=== PATIENT | female | born 1985 | race Caucasian/White ===

== ENCOUNTER → 2018-09-14 17:48 | Outpatient (CLI) | payer SELFPAY ==
[2018-09-14 15:26] VITALS: BMI 45.5
== END ==
PROVIDERS: PCP Nurse Practitioner Family; Referring Provider Nurse Practitioner Women's Health; Visit Provider Nurse Practitioner Women's Health
DX: N39.0 Urinary tract infection, site not specified (principal)
CPT/HCPCS: 87086; 87088

== ENCOUNTER → 2019-02-17 14:47 | Outpatient (CLI) | payer SELFPAY ==
[2019-01-23 10:36] VITALS: BMI 45.5
[2019-02-17 17:17] LABS: Progesterone Level 5.28 ng/mL (See Comment)
== END ==
PROVIDERS: Family Provider Nurse Practitioner Family; PCP Nurse Practitioner Family; Referring Provider Obstetrics & Gynecology; Visit Provider Obstetrics & Gynecology
DX: E28.2 Polycystic ovarian syndrome (principal)
CPT/HCPCS: 36415; 84144

== ENCOUNTER → 2019-03-28 14:58 | Outpatient (CLI) | payer SELFPAY ==
[2019-01-23 10:36] VITALS: BMI 45.5
[2019-03-28 17:04] LABS: hCG Titer Quant., Serum 1927 mIU/mL (1-3)
== END ==
PROVIDERS: Family Provider Nurse Practitioner Family; PCP Nurse Practitioner Family; Referring Provider Obstetrics & Gynecology; Visit Provider Obstetrics & Gynecology
DX: O20.0 Threatened abortion (principal); Z3A.00 Weeks of gestation of pregnancy not specified
CPT/HCPCS: 36415; 84702

== ENCOUNTER → 2019-04-17 17:15 | Outpatient (CLI) | payer SELFPAY ==
[2019-04-17 12:31] VITALS: BMI 45.5
[2019-04-17 21:52] LABS: Chlamydia Trachomatis by PCR Negative (Negative); Neisserai gonorrhoeae by PCR Negative (Negative); Probe Check PASS; Sample Adequacy Control PASS; Specimen Processing Control PASS
[2019-04-21 12:07] LABS: HPV APTIMA, High Risk Negative (Negative)
== END ==
PROVIDERS: Family Provider Nurse Practitioner Family; PCP Nurse Practitioner Family; Referring Provider Obstetrics & Gynecology; Visit Provider Obstetrics & Gynecology
DX: Z12.4 Encounter for screening for malignant neoplasm of cervix (principal); O09.90 Supervision of high risk pregnancy, unspecified, unspecified trimester; Z3A.00 Weeks of gestation of pregnancy not specified
CPT/HCPCS: 87086; 87088; 87491; 87591; 87624; 88175; G0145

== ENCOUNTER → 2019-04-24 11:08 | Outpatient (CLI) | payer OTHER, SELFPAY ==
[2019-04-17 12:31] VITALS: BMI 45.5
[2019-04-24 11:32] LABS: Absolute Lymphocyte Count 1.84 X10^3/uL (0.83-4.51); Absolute Neutrophil Count 6.6 X10^3/uL (2.0-7.7); Basophil# 0.03 X10^3/uL; Basophil% 0.3 % (0-1); Eosinophil# 0.16 X10^3/uL; Eosinophils% 1.7 % (0-5); Hematocrit 38.7 % (37-47); Hemoglobin 13.3 g/dL (12.0-15.0); Lymphocyte # 1.84 X10^3/ul (4.0); Lymphocyte % 19.8 % (19-41); Mean Corp Hgb Conc 34.4 g/dL (32-36); Mean Corpuscular Hgb 29.5 pg (27.0-32.0); Mean Corpuscular Volume 85.8 fL (81-99); Mean Platelet Vol. 10.1 fl (6.2-12.0); Monocyte# 0.68 X10^3/uL; Monocyte% 7.3 % (0-10); NRBC Flagged by Analyzer 0 % (0-5); Neutrophil # 6.55 X10^3/uL (2.7-7.7); Neutrophil % 70.5 % (47-70); Platelet Count 302 K/mm3 (150-450); RBC Distribution Width CV 14.6 % (11.6-14.6); RBC Distribution Width SD 45.4 fl (35.1-43.9); Red Blood Count 4.51 M/mm3 (4.2-5.4); White Blood Count 9.3 K/mm3 (4.4-11.0)
[2019-04-24 12:00] LABS: Glucose Challenge Gest 1H 50g 127 mg/dL (70-140)
[2019-04-24 12:50] LABS: HIV - WCH Non-Reactive (Nonreactive); Rubella IgG 47.1 IU/mL
[2019-04-28 01:38] LABS: Rapid Plasmin Reagin (RPR) NONREACTIVE (NONREACTIVE)
== END ==
PROVIDERS: Family Provider Nurse Practitioner Family; PCP Nurse Practitioner Family; Referring Provider Obstetrics & Gynecology; Visit Provider Obstetrics & Gynecology
DX: O09.90 Supervision of high risk pregnancy, unspecified, unspecified trimester (principal); Z3A.00 Weeks of gestation of pregnancy not specified
CPT/HCPCS: 36415; 82950; 85025; 86592; 86703; 86762; 86850; 86900; 86901

== ENCOUNTER → 2019-09-07 13:30 | Outpatient (CLI) | payer OTHER, SELFPAY ==
[2019-08-15 15:05] VITALS: BMI 45.5
[2019-09-07 13:49] LABS: Absolute Lymphocyte Count 1.86 X10^3/uL (0.83-4.51); Absolute Neutrophil Count 9.4 X10^3/uL (2.0-7.7); Basophil# 0.02 X10^3/uL; Basophil% 0.2 % (0-1); Eosinophil# 0.16 X10^3/uL; Eosinophils% 1.3 % (0-5); Hematocrit 31.8 % (37-47); Hemoglobin 10.5 g/dL (12.0-15.0); Lymphocyte # 1.86 X10^3/ul (4.0); Lymphocyte % 15.3 % (19-41); Mean Corpuscular Hgb 28.8 pg (27.0-32.0); Mean Corpuscular Volume 87.1 fL (81-99); Mean Platelet Vol. 10.6 fl (6.2-12.0); Monocyte# 0.61 X10^3/uL; NRBC Flagged by Analyzer 0 % (0-5); Neutrophil # 9.42 X10^3/uL (2.7-7.7); Neutrophil % 77.3 % (47-70); Platelet Count 259 K/mm3 (150-450); RBC Distribution Width CV 14.9 % (11.6-14.6); RBC Distribution Width SD 46.9 fl (35.1-43.9); Red Blood Count 3.65 M/mm3 (4.2-5.4); White Blood Count 12.2 K/mm3 (4.4-11.0)
[2019-09-07 14:07] LABS: Glucose Challenge Gest 1H 50g 153 mg/dL (70-140)
[2019-09-07 14:33] LABS: Hepatitis B Surface Antigen Non-Reactive (Nonreactive)
== END ==
PROVIDERS: Referring Provider Obstetrics & Gynecology; Visit Provider Obstetrics & Gynecology
DX: O09.90 Supervision of high risk pregnancy, unspecified, unspecified trimester (principal); Z3A.00 Weeks of gestation of pregnancy not specified
CPT/HCPCS: 36415; 82950; 85025; 87340

== ENCOUNTER → 2019-09-11 06:53 | Outpatient (CLI) | payer OTHER, SELFPAY ==
[2019-09-07 14:16] VITALS: BMI 45.5
[2019-09-11 07:56] LABS: Glucose GTT-Gestation. Fasting 107 mg/dL (<105)
[2019-09-11 08:41] LABS: Glucose GTT-Gestational 1 Hr 188 mg/dL (<190)
[2019-09-11 09:47] LABS: Glucose GTT-Gestational 2 Hr 149 mg/dL (<165)
[2019-09-11 10:50] LABS: Glucose GTT-Gestational 3 Hr 116 L (<145)
== END ==
PROVIDERS: Referring Provider Nurse Practitioner Women's Health; Visit Provider Nurse Practitioner Women's Health
DX: O99.810 Abnormal glucose complicating pregnancy (principal); Z3A.00 Weeks of gestation of pregnancy not specified
CPT/HCPCS: 36415; 82951; 82952; 86850; 86900; 86901

== ENCOUNTER → 2019-10-12 12:36 | Outpatient (CLI) | payer OTHER, SELFPAY ==
[2019-10-05 16:13] VITALS: BMI 46.5
[2019-10-05 16:28] VITALS: BMI 45.5
--- NOTE | 2019-10-12 12:37 | US_ITS ---
STUDY: SECOND AND THIRD TRIMESTER OBSTETRICAL ULTRASOUND REASON FOR EXAM: Female, 34 years old growth- GDM LMP: February 19, 2019. TECHNIQUE: Transabdominal TECHNICAL QUALITY: Adequate. PRIOR ULTRASOUND: None. FINDINGS: There is a single intrauterine fetus. The fetus is in a cephalic presentation. There is demonstrated cardiac activity with a heart rate of 148 bpm. There is a normal amniotic fluid volume. The largest amniotic fluid pocket measures 7.9 cm. The amniotic fluid index (ELIOT) is 19.6 cm. The placenta is anterior in location and is not low lying. There are Grade 1 placental changes. The cervix measures 5.0 cm in length. The adnexal regions are not visualized. BIOMETRY: BPD: 8.7 cm: 35 weeks, 0 days HC: 32.1 cm: 36 weeks, 1 days AC: 33.1 cm: 36 weeks, 6 days FL: 7.0 cm: 35 weeks, 6 days CI: 78% FL/BPD: 81% FL/HC: FL/AC: 21% HC/AC: 0.97 age by current US: 36 weeks, 0 days. LUKASZ by current US: November 09, 2019. Estimated weight: 2931 grams, +/- 434 grams, 98 %. Age by LMP: 33 weeks, 4 days. LUKASZ by LMP: November 26, 2019. US/OB Limited With Biometrics IMPRESSION: Single live intrauterine gestation with a mean gestational age of 36 weeks. Electronically Signed: Jori Cochran, at 10:07 EST , Service support ,
== END ==
PROVIDERS: Referring Provider Obstetrics & Gynecology; Visit Provider Obstetrics & Gynecology
DX: O24.419 Gestational diabetes mellitus in pregnancy, unspecified control (principal); O99.210 Obesity complicating pregnancy, unspecified trimester; Z3A.36 36 weeks gestation of pregnancy
CPT/HCPCS: 76816

== ENCOUNTER → 2019-11-02 | Outpatient (CLI) | payer OTHER, SELFPAY ==
[2019-11-02 16:28] VITALS: BMI 45.5
== END | disposition home or self-care (01) ==
LOC: LABSPEC 17:29
PROVIDERS: Visit Provider Obstetrics & Gynecology
DX: O09.90 Supervision of high risk pregnancy, unspecified, unspecified trimester (principal); Z3A.00 Weeks of gestation of pregnancy not specified
CPT/HCPCS: 87081

== ENCOUNTER 2019-11-17 07:12 | Inpatient (IN) | payer OTHER, SELFPAY ==
[2019-10-20 15:11] VITALS: BMI 45.5
[2019-11-08 15:22] VITALS: BMI 46.5
[2019-11-17] VITALS (28 sets, daily range): BP systolic 104–151; BP diastolic 45–90; PULSE 64–104; RESP 14–18; TEMP 36.2–36.8; O2SAT 94–99; BMI 46.7
[2019-11-17] MEDS: Lactated Ringers 1,000 ML 999 ML IV (05:50)
[2019-11-17 06:14] LABS: Absolute Lymphocyte Count 1.98 X10^3/uL (0.83-4.51); Absolute Neutrophil Count 9.7 X10^3/uL (2.0-7.7); Basophil# 0.04 X10^3/uL; Basophil% 0.3 % (0-1); Eosinophil# 0.09 X10^3/uL; Eosinophils% 0.7 % (0-5); Hematocrit 32.8 % (37-47); Hemoglobin 10.4 g/dL (12.0-15.0); Lymphocyte # 1.98 X10^3/ul (4.0); Lymphocyte % 15.4 % (19-41); Mean Corp Hgb Conc 31.7 g/dL (32-36); Mean Corpuscular Hgb 26.3 pg (27.0-32.0); Mean Platelet Vol. 11.7 fl (6.2-12.0); Monocyte# 0.97 X10^3/uL; Monocyte% 7.5 % (0-10); NRBC Flagged by Analyzer 0 % (0-5); Neutrophil % 75.5 % (47-70); Platelet Count 235 K/mm3 (150-450); RBC Distribution Width CV 15.9 % (11.6-14.6); RBC Distribution Width SD 47.9 fl (35.1-43.9); Red Blood Count 3.95 M/mm3 (4.2-5.4); White Blood Count 12.9 K/mm3 (4.4-11.0)
[2019-11-17 06:21] LABS: Bedside Glucose 101 mg/dL (70-110)
[2019-11-17] MEDS: Lactated Ringers 1,000 ML 200 ML IV (06:57)
[2019-11-17] MEDS: Sodium Citrate/Citric Acid 30 ML UDC PO (08:30)
[2019-11-17] MEDS: Oxytocin 30 units/NS 500 ml 30 UNITS/500 ML IV.SOLN 167 UNITS IV (10:05)
--- NOTE | 2019-11-17 10:07 | HP.PCM_ITS ---
- Problem List (1) Active labor at term Status: Acute (2) Gestational diabetes Status: Acute Qualifiers: Gestational diabetes mellitus control: diet-controlled Trimester: third trimester Qualified Code(s): O24.410 - Gestational diabetes mellitus in , diet controlled Comment: low carb diet, diet controlled. after 32 weeks, weekly nsts, growth scan at 36 (3) Anemia affecting Status: Acute Qualifiers: Trimester: second trimester Qualified Code(s): O99.012 - Anemia complicating , second trimester Comment: add fe (4) H/O section Status: Acute Comment: 2013 plans RLTCS (5) Obesity affecting Status: Acute Qualifiers: Trimester: first trimester Qualified Code(s): O99.211 - Obesity complicating , first trimester Comment: nl GCT (6) Supervision of high risk , antepartum Status: Acute Comment: PRR LUKASZ 11/26/2019 girl Jacki Wolf Spouse Karan (7) Status: Acute Qualifiers: Weeks of gestation: 37 weeks Qualified Code(s): Z3A.37 - 37 weeks gestation of Comment: Declines carrier, genetic and NTD. Anatomy US nl. [facility] would like periodic status reports (8) Anxiety Status: Chronic Comment: 150 mg zoloft, recommend counseling (9) PCOS (polycystic ovarian syndrome) Status: Chronic Comment: femara History Date of Admission: 11/17/19 Final LUKASZ: 11/26/19 Gestational age: 38 Weeks and 5 Days History of this : This is a 34 year-old, , at 38 weeks gestational age presents in active labor with regular contractions and declining trial of labor after . P atient has had a complicated by gestational diabetes that has been well controlled with diet.. Medical History: Medical History (Last Reviewed 11/08/19 @ 15:22 by Mary Lou Aguilera) Anxiety F41.9 Obesity E66.9 PCOS (polycystic ovarian syndrome) E28.2 Surgical History: Surgical History (Last Reviewed 11/08/19 @ 15:22 by Mary Lou Aguilera) delivery delivered O82 History of dilation and curettage Z98.890 miscarriage 2010; pt states that a polyp was removed as well as a cyst. Allergies prednisone Allergy (Mild, Verified 11/17/19 05:48) Other rash Home Medications: Home Medications levocetirizine 5 mg tablet 5 mg PO DAILY 01/23/19 fluticasone propionate 50 mcg/actuation nasal spray,suspension 1 spray INTRANASAL DAILY PRN 04/17/19 blood sugar diagnostic See Rx Instructions .ROUTE .MEDSUPPLY #100 ea 09/11/19 blood-glucose meter See Rx Instructions .ROUTE .MEDSUPPLY #1 ea 09/11/19 sertraline 100 mg tablet 150 mg PO QDAY 90 Days #135 tab 10/24/19 Vits [Prenatabs FA] 1 tab PO DAILY 11/17/19 Smoking Status: Never smoker Alcohol: None Number of Fetus(es): 1 NST - FHR Rate Baby A Baseline: 130 Variability:: Moderate Decelerations:: None NST Reactive:: Yes FHR Category:: Category I Uterine Activity:: Regular every 2-3 and painful History Past Pregnancies: Past Pregnancies History of miscarriage Previous term for macrosomia 10 pounds 3 ounces Labs: Mom's Labs & Results 11/17/19 11/17/19 11/17/19 05:50 05:50 06:16 WBC 12.9 H RBC 3.95 L Hgb 10.4 L Hct 32.8 L MCV 83.0 MCH 26.3 L MCHC 31.7 L RDW Std Deviation 47.9 H RDW Coeff of Tyshawn 15.9 H Plt Count 235 MPV 11.7 Immature Gran % (Auto) 0.600 Neut % (Auto) 75.5 H Lymph % (Auto) 15.4 L Hemphill % (Auto) 7.5 Eos % (Auto) 0.7 Baso % (Auto) 0.3 Absolute Neuts (auto) 9.7 H Absolute Lymphs (auto) 1.98 Nucleated RBC % 0 POC Glucose 101 Blood Type A POSITIVE Antibody Screen NEGATIVE 11/17/19 10:40 WBC RBC Hgb Hct MCV MCH MCHC RDW Std Deviation RDW Coeff of Tyshawn Plt Count MPV Immature Gran % (Auto) Neut % (Auto) Lymph % (Auto) Hemphill % (Auto) Eos % (Auto) Baso % (Auto) Absolute Neuts (auto) Absolute Lymphs (auto) Nucleated RBC % POC Glucose 97 Blood Type Antibody Screen Course Did the patient receive Yes care? Labs Blood Type: A RH: POSITIVE RPR/VDRL/Syphilis Nonreactive Rubella status Immune HbSAg Negative Date Done: 09/07/18 Chlamydia Negative Gonorrhea Negative HIV/AIDS Non-Reactive Group B Strep: Negative Current Obstetrical History Gestational Diabetes Yes: diet controlled Incompetent Cervix No Infertility No IUGR No Macrosomia No Hypertension/Pre-eclampsia No Placenta Previa/Abruption No PTL/PROM No Uterine anomaly No Oligohydramnios No Polyhydramnios No Multiple gestation No Past Medical History Asthma No Diabetes No Hypertension No Heart disease No Mitral valve prolapse No Neurologic/Seizure disorder/ No Migraines Kidney disease No Liver disease No Varicosities No Clotting disorders/Hx of DVT No Thyroid Dysfunction No Other medical diseases No Psychiatric disorders Yes: anxiety Major trauma No Abnormal PAP smear Yes: polyps removed on cervix Sleep apnea No Mammogram in the last 2 years No Enter DETAILS of medical polycystic ovarian syndrome history Social History Marital Status: Alleged father Karan Jurado Hx Smoking No Smoking Status Never smoker Expected Infant Delivery Method: Scheduled Section Review of Systems Constitutional: Denies: Fever, Malaise Eyes: Denies: Blurred vision, Vision Change HEENT: Denies: Head Aches, Visual Changes Cardiovascular: Denies: Chest Pain, Palpitations Respiratory: Denies: Cough, Shortness of Breath, Wheezing Gastrointestinal: Denies: Abdominal Pain, Diarrhea, Nausea, Vomiting Genitourinary: Denies: Dysuria, Hematuria Musculoskeletal: Denies: Joint Pain, Muscle pain Skin: Denies: Lesions, Rash Neurological: Denies: Blurred vision, Focal weakness, Headaches Psychiatric: Denies: Anxiety, Depression Endocrine: Denies: Heat/ Cold Intolerance Hematologic/ Lymphatic: Denies: Easy Bruising, Easy Bleeding Physical Exam Vitals: Vital Signs Pulse BP Pulse Ox 97 148/78 H 94 11/17/19 07:23 11/17/19 07:23 11/17/19 05:57 General: Alert, Cooperative, No apparent distress HEENT: Atraumatic, Normocephalic. Negative for: Thyromegaly, Lymphadenopathy Cardiovascular: Regular rate Lungs: Normal air movement Abdomen: Soft, Non Tender, Gravid Neurological: Deep Tendon Reflexes 2+/4 and Symmetrical, Neuro grossly intact. 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 Negative for: Vulvar lesions Estimated gestational size: Appropriate for gestational size Presentation: Cephalic Assessment/Plan All Active Problems (Last Reviewed 11/08/19 @ 15:22 by Mary Lou Aguilera) Active labor at term (Acute) Gestational diabetes (Acute) Anemia affecting (Acute) H/O section (Acute) Obesity affecting (Acute) Supervision of high risk , antepartum (Acute) (Acute) Abnormal glucose affecting (Resolved) Low lying placenta nos or without hemorrhage, second trimester (Resolved) This is a 34 year-old, G 3P1 at 38 weeks gestational age presents in active labor with regular contractions previous declined trial of labor after . plan RLTCS
[2019-11-17 11:06] LABS: Bedside Glucose 97 mg/dL (70-110)
[2019-11-17] MEDS: Lactated Ringers 1,000 ML 100 ML IV (13:10)
[2019-11-17] MEDS: Ketorolac 30 MG/ML Syringe IV ×2 (16:45→22:03)
--- NOTE | 2019-11-17 17:09 | OP.PCM_ITS ---
Problem List (1) Active labor at term Status: Acute (2) Gestational diabetes Status: Acute Qualifiers: Gestational diabetes mellitus control: diet-controlled Trimester: third trimester Qualified Code(s): O24.410 - Gestational diabetes mellitus in , diet controlled Comment: low carb diet, diet controlled. after 32 weeks, weekly nsts, growth scan at 36 (3) Anemia affecting Status: Acute Qualifiers: Trimester: second trimester Qualified Code(s): O99.012 - Anemia complicating , second trimester Comment: add fe (4) H/O section Status: Acute Comment: 2013 plans RLTCS (5) Obesity affecting Status: Acute Qualifiers: Trimester: first trimester Qualified Code(s): O99.211 - Obesity complicating , first trimester Comment: nl GCT (6) Supervision of high risk , antepartum Status: Acute Comment: PRR LUKASZ 11/26/2019 girl Jacki Wolf Spouse Karan (7) Status: Acute Qualifiers: Weeks of gestation: 37 weeks Qualified Code(s): Z3A.37 - 37 weeks gestation of Comment: Declines carrier, genetic and NTD. Anatomy US nl. [facility] would like periodic status reports (8) Anxiety Status: Chronic Comment: 150 mg zoloft, recommend counseling (9) PCOS (polycystic ovarian syndrome) Status: Chronic Comment: femara Delivery Classification: REDDY Final LUKASZ: 11/26/19 Gestational age: 38 Weeks and 5 Days equipment operator intermodal yard: Araseli Sesay Type of Anesthesia:: Spinal Special Medications: violetta Implants Used: none Date of Procedure: 11/17/19 Pre-Operative Diagnosis: ial previous Post-Operative Diagnosis: same Indications for : Repeat Elective Description of Procedure: 34-year-old G3, P1 at 38 weeks 5 days presents in active labor made cervical change from when she was in the office and was avani regularly with painful contractions for decision was made to proceed with repeat low transverse . Spinal anesthesia was placed without difficulty. Lozada catheter was placed. The patient was placed in the dorsal supine position with leftward tilt. Patient was prepped and draped in the normal sterile fashion. Pfannenstiel skin incision was made with the scalpel and carried through to the underlying layer of fascia with the scalpel. Fascia was nicked in the midline and the incision extended laterally. The rectus bellies were dissected off superiorly and inferiorly with out complication both sharply and bluntly. The peritoneum was entered digitally. The incision was stretched and a low transverse uterine incision was made with the scalpel. The infant's head was delivered atraumatically followed by the anterior and posterior shoulders without complication the rest of the infant delivered. The cord was clamped and cut and the was handed off to awaiting nurse. The placenta was delivered spontaneously immediately following and was noted to be intact and have a three- vessel cord. The uterus was exteriorized cleared of all clots and debris, and the incision was closed in a double layer closure using #1 Monocryl. The ovaries and fallopian tubes were noted to be within normal limits. The uterus was returned to the maternal abdomen and gutters were cleared of all clots and debris. Violetta was applied to the incision to obtain excellent hemostasis. The peritoneum was closed with 3-0 Monocryl in a running fashion. Gloves were changed prior to fascial closure. Fascia was closed with 0 PDS in a running fashion. Subcutaneous tissue was copiously irrigated and the skin was closed with 3-0 Monocryl in a subcuticular fashion. Mepilex dressing was applied without complication. Patient was taken to recovery in stable condition. It was discussed with the patient that based on the clinical information obtained during this encounter, combined with her history, at this time I would recommend cesareans for future deliveries if further pregnancies are desired. Amniotic Membrane Rupture Type: Artificial Amniotic Fluid Description: Clear Placenta Disposition: [facility] Drain: Lozada to straight drain Cord Entanglement: None Esitmated Blood Loss (ml): 900 Infant Gender: Female Antibiotic Given: Ancef 3 grams IV x1 Pt instructed on risks of surgery: Bleeding, Anesthesia Risks, Infection, Injury to surrounding structure(s) including bowel and bladder Complications: None - Admit VTE Documentation VTE Present on Admission: No Multi Select Codes - Urinary/Genital Urinary/Genital CPT Codes: 39615 Delivery [facility]
[2019-11-17] MEDS: Sertraline 100 MG Tablet 150 MG PO (17:35)
[2019-11-17] MEDS: Enoxaparin 40 MG/0.4 ML Syringe SC (20:24)
--- NOTE | 2019-11-17 20:51 | DCINST_ITS ---
Discharge Diet: No Restrictions Discharge Activity: May Not Drive - for 2 weeks, May not drive while taking narcotic pain medications., May Shower, May Take a Tub Bath - in 7 days May resume sexual activity in: 4-6 weeks Lifting Restrictions: 20 pounds Additional Activity Instructions:: Nothing in the vagina for 4-6 weeks. You may return to work/school in 6 weeks. Call your doctor if your incision/area has: Continuous Slow Oozing, Sudden Increased Bleeding, Increased Pain/ Swelling, Increased Redness, Foul Smelling Discharge Call your doctor if you observe: Fever of 101 or Higher, Using more than one pad per hour - for 2 hours Suture Line Care: Avoid Pulling/Pushing, Avoid Pinching/Bending Cleanse incision/area with: Keep Dressing Clean & Dry Additional Instructions: If you experience any of the following, contact your healthcare provider. * Bleeding that soaks a pad every hour for 2 hours * Fever 100.4 or higher * Unrelieved incision or abdominal pain * Swelling, redness, discharge or bleeding from your incision or episiotomy site * Your incision begins to separate * Problems urinating (including inability to urinate or burning while urinating). * Visual changes * Severe headache * Flu-like symptoms * Pain or redness in one of both of your breasts * Pain, warmth, tenderness or swelling in your legs, especially the calf area * Frequent nausea and vomiting * Symptoms of depression or anxiety If you experience any of the following, call 911 or go to the nearest Emergency Room. * Chest pain * Problems breathing * Seizure activity * Partial or complete paralysis of a body part, slurred speech, weakness or drooping of the face, or a sudden inability to walk or hold your balance Allergies/Adverse Reactions: Allergies prednisone Allergy (Mild, Verified 11/17/19 05:48) Other rash Medications to take at Discharge levocetirizine 5 mg tablet 5 mg PO DAILY 01/23/19 fluticasone propionate 50 mcg/actuation nasal spray,suspension 1 spray INTRANASAL DAILY PRN 04/17/19 blood sugar diagnostic See Rx Instructions .ROUTE .MEDSUPPLY #100 ea 09/11/19 blood-glucose meter See Rx Instructions .ROUTE .MEDSUPPLY #1 ea 09/11/19 sertraline 100 mg tablet 150 mg PO QDAY 90 Days #135 tab 02/18/20 Naproxen [Naprosyn] 250 - 500 mg PO Q8H PRN PRN #30 tab 11/17/19 Oxycodone HCl/Acetaminophen [Percocet 5-325] 1 - 2 tablet PO Q6H PRN PRN 7 Days #15 tablet 11/17/19 Vits [Prenatabs FA] 1 tab PO DAILY 11/17/19 The following prescriptions were given: Naproxen [Naprosyn] 250 - 500 mg PO Q8H PRN PRN #30 tab PRN Reason: MILD PAIN Transmission Status: Pending to [facility] Oxycodone HCl/Acetaminophen [Percocet 5-325] 1 - 2 tablet PO Q6H PRN PRN 7 Days #15 tablet PRN Reason: Pain Transmission Status: Sent to [facility] Follow-Up: Call to make an appointment with your doctor for an incision check in 1-2 weeks. You will also need a 6 week post- follow up appointment. Test results from this visit will be discussed in further detail at your follow- up appointment, if applicable. Please Follow Up With: Keila Viveros MD - Call to make an appointment for an incision check in 1-2 [phone] When: You will need a post- check in 6 weeks. Primary Care Physician: Care Physician,No Primary [Primary Care Provider] -
[2019-11-17] MEDS: 0.9% Saline Lock 10 ML Syringe IV (22:03)
[2019-11-18] VITALS (7 sets, daily range): BP systolic 111–123; BP diastolic 62–70; PULSE 74–102; RESP 14–18; TEMP 36.2–36.8; O2SAT 97–99
[2019-11-18] MEDS: Ketorolac 30 MG/ML Syringe IV ×3 (04:48→16:15)
[2019-11-18] MEDS: 0.9% Saline Lock 10 ML Syringe IV ×3 (04:49→16:16)
[2019-11-18 05:06] LABS: Bedside Glucose 116 mg/dL (70-110)
[2019-11-18 05:08] LABS: Hematocrit 27.9 % (37-47); Hemoglobin 8.8 g/dL (12.0-15.0); Mean Corp Hgb Conc 31.5 g/dL (32-36); Mean Corpuscular Hgb 26.5 pg (27.0-32.0); Mean Platelet Vol. 10.8 fl (6.2-12.0); Platelet Count 199 K/mm3 (150-450); RBC Distribution Width CV 16.1 % (11.6-14.6); RBC Distribution Width SD 48.4 fl (35.1-43.9); Red Blood Count 3.32 M/mm3 (4.2-5.4); White Blood Count 13.2 K/mm3 (4.4-11.0)
--- NOTE | 2019-11-18 07:11 | PCM.PN.OB ---
Patient Problems: Active and Suspected Problems (Last Reviewed 11/08/19 @ 15:22 by Mary Lou Aguilera) Active labor at term (Acute) Subjective: doing well no complaints pain controlled no CP SOB N V ambulating well tolerating po lochia moderate, going well - Physical Exam Vitals/I&O's: Vital Signs Temp Pulse Resp BP Pulse Ox 98.0 F 84 18 118/70 97 11/18/19 04:45 11/18/19 06:30 11/18/19 06:30 11/18/19 04:45 11/18/19 06:30 Oxygen Delivery Method Room Air Weight: 289 lb 14.526 oz Body Mass Index (BMI) 46.7 Intake and Output for Last 24 Hours 11/16/19 11/17/19 11/18/19 23:59 23:59 23:59 Intake Total 2666.67 / 2666.67 Output Total 950 / 950 150 / 150 Balance 1716.67 / 1716.67 -150 / -150 Laboratory Results 11/17/19 05:50: Blood Type A POSITIVE, Antibody Screen NEGATIVE 11/17/19 10:40: POC Glucose 97 11/18/19 04:55: POC Glucose 116 H 11/18/19 04:58: WBC 13.2 H, RBC 3.32 L, Hgb 8.8 L, Hct 27.9 L, MCV 84.0, MCH 26.5 L, MCHC 31.5 L, RDW Std Deviation 48.4 H, RDW Coeff of Tyshawn 16.1 H, Plt Count 199, MPV 10.8 Current Medications Acetaminophen (Tylenol) 1,000 mg PO Q8H PRN PRN Reason: Pain Score 1-3/10 Bisacodyl (Dulcolax) 10 mg RECTAL UD PRN PRN Reason: If no BM Diphenhydramine HCl (Benadryl) 25 mg PO Q6H PRN PRN PRN Reason: ITCHING Stop: 11/18/19 10:45 Enoxaparin Sodium (Lovenox) 40 mg SC BID@0800,2000 MARYANN Last Admin: 11/17/19 20:24 Dose: 40 mg Documented by: Glucagon () 1 mg IM .X1 PRN PRN Reason: Hypoglycemia Hydrocortisone (Hytone) 1 applic TOPICAL TID PRN PRN; Protocol PRN Reason: Discomfort Naloxone HCl 4 mg/ Dextrose 504 mls @ 0 mls/hr IV .Q0M PRN; Protocol PRN Reason: Respiratory depression Dextrose (Dextrose 10%-Water) 250 mls @ 999 mls/hr IV X1 PRN; Protocol PRN Reason: HYPOGLYCEMIA Ketorolac Tromethamine (Toradol (Bkc)) 30 mg IV Q6H MARYANN Stop: 11/19/19 10:01 Last Admin: 11/18/19 04:48 Dose: 30 mg Documented by: Loratadine (Claritin) 10 mg PO DAILY [facility] Methylergonovine Maleate (Methergine) 0.2 mg IM X1 PRN PRN Reason: Uterine Atony Nalbuphine HCl (Nubain) 5 mg IV Q3H PRN PRN PRN Reason: ITCHING Stop: 11/18/19 10:45 Naloxone HCl (Narcan) 0.02 mg IV Q1M PRN PRN Reason: RR <10 and pt unresponsive Naproxen (Naprosyn) 250 - 500 mg PO Q8H PRN PRN PRN Reason: Pain Score 1-3/10 Ondansetron HCl (Zofran) 4 mg IV Q4H PRN PRN PRN Reason: Nausea Oxycodone HCl (Oxyir) 5 - 10 mg PO Q4H PRN PRN PRN Reason: Pain Score 4-10/10 Multivit/Folic Acid/Iron (Prenatabs Fa) 1 tablet PO DAILY@1200 MARYANN Prochlorperazine Edisylate (Compazine Iv) 10 mg IV Q6H PRN PRN PRN Reason: NAUSEA Senna/Docusate Sodium (Senokot-S, Elise-Colace) 0 tablet PO DAILY PRN PRN Reason: Constipation Sertraline HCl (Zoloft) 150 mg PO DAILY [facility] Last Admin: 11/17/19 17:35 Dose: 150 mg Documented by: Simethicone (Mylicon) 80 mg PO PCHS PRN PRN Reason: Indigestion/stomach pain Sodium Chloride () 5 - 15 ml IV UD PRN PRN Reason: SALINE FLUSH Last Admin: 11/18/19 04:49 Dose: 10 ml Documented by: Medical Necessity - Tobacco Use Smoking Status: Never smoker Assessment/Plan All Active Problems (Last Reviewed 11/08/19 @ 15:22 by Mary Lou Aguilera) Active labor at term (Acute) Gestational diabetes (Acute) Anemia affecting (Acute) H/O section (Acute) Obesity affecting (Acute) Supervision of high risk , antepartum (Acute) (Acute) Abnormal glucose affecting (Resolved) Low lying placenta nos or without hemorrhage, second trimester (Resolved) s/p LTCS PPD # 1 1. routine post care 2. breast feeding- support given 3. rh positive 4. rubella immune
[2019-11-18] MEDS: Sertraline 100 MG Tablet 150 MG PO (10:13)
[2019-11-18] MEDS: Loratadine 10 MG Tablet PO (10:13)
[2019-11-18] MEDS: Enoxaparin 40 MG/0.4 ML Syringe SC (10:13)
[2019-11-18] MEDS: Prenatal Vits Tablet 1 TABLET PO (10:14)
--- NOTE | 2019-11-18 13:00 | CASEMGMT ---
Social Work Assessment Labor and Delivery Unit Date of Referral: 11/18/2019 Time of Referral: 032 Referred By: Dr. Viveros Date of Intervention: 11/18/2019 Time of Intervention: 1300 Reason for Referral: History of Anxiety, manages with Zoloft History obtained from: Mother of baby (MOB), Father of baby (FOB), Nursing staff, and chart. Household composition: FOB, MOB, Roman (age 6) and now this , Jacki Jurado. Alleged FOB is Karan Jurado. MOB and FOB have been for 11 years and together for 12 years. Roman shared paternity with Jacki. MOB stating that was planned and long time coming. MOB stating to have had a miscarriage with first , was able to get and have Roman and thought to be unable to have any other children until Jacki. Medical History: MOB with planned for 11/20/2019 but came in early due to having contractions. MOB delivered via at 38 weeks to this , Jacki. Jacki with apgars of 8 (1 min) and 9 (5 min). Infant weight: 4.455kg. No complications per MOB. MOB and FOB hoping to be able to return to home today, nursing staff updated on this. MOB with a history of Anxiety, Gestational diabetes, polycystic ovarian syndrome. Educational Status: MOB reporting to have completed high school and to have no concerns with reading/writing or comprehension. 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 FOB very complimentary of MOB during assessment when FOB was present in room. Infant Supplies: MOB/FOB stating to have all needed supplies within the home (ex: Crib, Care seat, clothing). MOB plans to do a combination of and bottle feeding. Childcare/Caregiver(s): MOB plans to be primary rn complex care for infant. MOB reporting that FOB plans to have the next week off work to help around the home and then after FOB returns to work the plan will be for MOB's mother to stay with MOB to assist with the transition. Transportation: No concerns. Programs/Agencies Involved: No active involvement in community programs/agencies. Children Services/Legal Issues: No history per MOB/FOB. Mental Health History: MOB reporting a history of anxiety and to manage this with Zoloft. MOB stating that the Zoloft helps. MOB reporting to have been anxious coming into the hospital due to the recent community health concerns. MOB stating to now feel much better since having infant and planning to return to home. MOB stating to be able to manage anxiety through speaking with spouse as well. Substance Use History: MOB denies any history of substance abuse/use for MOB or FOB. Maternal and Drug Screens: No drug screens completed. PHQ9: MOB did not trigger PHQ-9. MOB presenting with a positive and engaged affect. Was able to broach the topic of depression and MOB risk for this. MOB denies any history of depression. MOB educated and aware of signs/symptoms of depression. This social work assistant as also able to normalize MOB's feelings of anxiety. Was able to have a conversation about seeking outside help/support for anxiety if needed. Family/Social Stressors: MOB denies any recent stressors outside of now transitioning to two children versus one. MOB stating to have the needed support to assist with this transition. Support Systems: FOB and family members. Depression and Anxiety/Shaken Baby/Safe Sleeping: MOB educated and provided resources on depression, anxiety, shaken baby, safe sleeping, community resources, local counseling agencies. ASSESSMENT: Met with MOB and FOB with infant in room initially. This social work assistant did ask FOB to step out of room to assess MOB's safety in the home. FOB left willingly. MOB stating to feel safe with FOB and to have no concerns with returning to home. MOB stating to have a connection with and to be happy that is now here. MOB stating to be disappointment with visitation limitations at this point and that is why Roman has not been able to come, but MOB stating to be excited for Roman to meet when returning to home. Orman is currently with MOB's mother. MOB smiling often towards this social work assistant and engaged in assessment questions. Infant resting on bed with MOB during assessment. MOB gazing often towards during assessment. Active listening and support provided. PLAN: to discharge to home with MOB, FOB and older brother Roman. Nursing staff updated on above social work assessment. No other services requested or indicated. Jayna Metcalf CUSTOMER SERVICE COORDINATOR, CATERING MANAGER
== END 2019-11-18 17:15 | disposition home or self-care (01) | DRG 788 ==
LOC: WPOUT 07:13 → WP 07:13
PROVIDERS: Admitting Provider Obstetrics & Gynecology; Referring Provider Obstetrics & Gynecology; Visit Provider Obstetrics & Gynecology
DX: O34.211 Maternal care for low transverse scar from previous cesarean delivery (principal); O24.420 Gestational diabetes mellitus in childbirth, diet controlled; O99.214 Obesity complicating childbirth; E66.9 Obesity, unspecified; O99.02 Anemia complicating childbirth; D64.9 Anemia, unspecified; O99.344 Other mental disorders complicating childbirth; F41.9 Anxiety disorder, unspecified; O99.284 Endocrine, nutritional and metabolic diseases complicating childbirth; E28.2 Polycystic ovarian syndrome; Z3A.38 38 weeks gestation of pregnancy; Z37.0 Single live birth
CPT/HCPCS: 59050; 82962; 85025; 85027; 86850; 86900; 86901; 99218; 99251; J7120; A4216; G0378; G0463; J2405

== ENCOUNTER → 2019-12-01 14:47 | Outpatient (CLI) | payer OTHER, SELFPAY ==
[2019-11-17 05:46] VITALS: BMI 46.7
[2019-12-01 15:39] LABS: Absolute Lymphocyte Count 2.16 X10^3/uL (0.83-4.51); Absolute Neutrophil Count 4.6 X10^3/uL (2.0-7.7); Basophil# 0.05 X10^3/uL; Basophil% 0.7 % (0-1); Eosinophil# 0.22 X10^3/uL; Eosinophils% 2.9 % (0-5); Hematocrit 37.7 % (37-47); Hemoglobin 11.3 g/dL (12.0-15.0); Lymphocyte # 2.16 X10^3/ul (4.0); Lymphocyte % 28.2 % (19-41); Mean Corpuscular Hgb 25.3 pg (27.0-32.0); Mean Corpuscular Volume 84.3 fL (81-99); Mean Platelet Vol. 10.9 fl (6.2-12.0); Monocyte# 0.58 X10^3/uL; Monocyte% 7.6 % (0-10); NRBC Flagged by Analyzer 0 % (0-5); Neutrophil # 4.64 X10^3/uL (2.7-7.7); Neutrophil % 60.3 % (47-70); Platelet Count 365 K/mm3 (150-450); RBC Distribution Width CV 17.2 % (11.6-14.6); RBC Distribution Width SD 52.8 fl (35.1-43.9); Red Blood Count 4.47 M/mm3 (4.2-5.4); White Blood Count 7.7 K/mm3 (4.4-11.0)
== END ==
PROVIDERS: Referring Provider Obstetrics & Gynecology; Visit Provider Obstetrics & Gynecology
DX: O99.019 Anemia complicating pregnancy, unspecified trimester (principal); Z3A.00 Weeks of gestation of pregnancy not specified
CPT/HCPCS: 36415; 85025

== ENCOUNTER 2020-12-16 11:01 | Observation (INO) | payer SELFPAY ==
[2020-01-02 16:28] VITALS: BMI 46.7
[2020-12-16 11:03] VITALS: BP 135/88; PULSE 86; RESP 16; TEMP 35.7; O2SAT 98; BMI 44.4
--- NOTE | 2020-12-16 12:02 | US_ITS ---
STUDY: ABDOMINAL ULTRASOUND - RIGHT UPPER QUADRANT REASON FOR VISIT: Female, 35 years old epigastric pain. TECHNIQUE: Ultrasound evaluation of the right upper quadrant was performed with real-time and static cifuentes-scale imaging. TECHNICAL QUALITY: Adequate. COMPARISON: None. FINDINGS: Liver: The liver measures 16.8 cm. There is normal echogenicity of the liver. The bile ducts are within normal limits. There is hepatic color flow. The direction of portal flow is hepatopetal. There is no demonstrated mass lesion. Gallbladder: Normal distended gallbladder. The gallbladder wall is slightly thickened and measures 3.3 mm. There is a positive sonographic Wheatley''s sign. There is trace amount of pericholecystic fluid. There are multiple echogenic structures within the gallbladder, consistent with multiple gallstones. Sludge is also seen in the gallbladder lumen. Common Bile Duct (C.B.D.): The common bile duct measures 3.8 mm. Pancreas: Normal size of the head, body and tail of the pancreas. There is increased echogenicity of the pancreas. There is no demonstrated pancreatic mass or cyst. Right Kidney: Normal size of the right kidney. The right kidney measures 11.3 cm x 5.6 cm x 4.6 cm. Normal renal cortex. The right cortex measures 1.5 cm. There is no demonstrated renal mass or cyst. There is no right hydronephrosis. US/Gallbladder IMPRESSION: Multiple gallstones and sludge seen within the gallbladder lumen. Mildly thickened gallbladder wall with an minimal amount of pericholecystic fluid. Electronically Signed: Jori Cochran MD at 14:03 EDT , Service support ,
--- NOTE | 2020-12-16 12:03 | ED.VIS.GI ---
History of Present Illness Chief Complaint: Abd Pain Informant: Patient - Abdominal Pain/Flank Pain Onset: Days - 3 Context: Gradual Onset - shortly after dinner Timing: Continuous, Waxes and wanes Quality: Aching Location: - - across upper abd, occasionally into upper flanks, not back/shoulders Current Severity: Moderate Maximum Severity: Severe Worsened by: Nothing. Not Worsened By: Food - but not eating much since onset Relieved by: Nothing - Nausea/Vomiting/Emesis GI Symptom: Nausea. Negative for: Vomiting - Diarrhea/Melena/Hematochezia GI Symptom: Diarrhea. Negative for: Melena, Hematochezia Onset: Today Stool Quality: Loose. Negative for: Mucous, Black, Maroon, TEODORA per rectum Episodes: 1 Associated Symptoms: Negative for: Dysuria, Frequency, Hematuria, Urgency Narrative: Healthy 35-year-old female has had upper abdominal pain in a bandlike sensation for the last several days. It has been somewhat colicky, it has not gone away. Prior similar symptoms: No Recent Illness/Hospitalization: Yes - Stomach bug along with , 8 hours of vomiting/diarrhea 1 week ago - Past Medical History (1) Anxiety Status: Chronic Comment: 150 mg zoloft, recommend counseling (2) PCOS (polycystic ovarian syndrome) Status: Chronic Comment: femara Past Medical History - Allergies and Home Meds Allergies/Adverse Reactions: Allergies prednisone Allergy (Mild, Verified 12/16/20 11:02) Other rash Primary Care Physician: Care Physician,No Primary [NON-STAFF] - Surgical History: - - x2 Lives: Spouse/ Significant Other Smoking Status: Never smoker Review of Systems General: Reports: Malaise. Denies: Chills, Fever, Sweats Eyes: Denies: Visual changes - bilaterally, Diplopia ENT: Denies: Rhinorrhea, Sore throat Cardiovascular: Denies: Chest pain, Palpitations Respiratory: Denies: Dyspnea, Cough, Dyspnea on exertion Gastrointestinal: Reports: Abdominal pain, Nausea, Vomiting, Diarrhea. Denies: Melena, Hematochezia Genitourinary: Denies: Dysuria, Hematuria, Frequency Musculoskeletal: Denies: Myalgias, Back pain, Swelling, Extremity Pain Skin: Denies: Rash, Wounds Neurological: Denies: Headache, Weakness, Numbness Physical Exam Vital Signs/Narrative: Vital Signs Temp Pulse Resp BP Pulse Ox 12/16/20 11:03 96.2 F L 86 16 135/88 H 98 Inital Vital Signs reviewed: Yes General: Well nourished, Well developed, Obese, No Acute Distress Head: Normocephalic, Atraumatic Eyes: Perrl, EOMI ENT: Moist mucous membranes, No rhinorrhea Neck: Supple, Nontender Cardiovascular: Regular rate, Regular rhythm, No murmurs Respiratory: No distress, CTA bilaterally, Chest nontender Abdomen: Soft, Nondistended, Normal bowel sounds, No masses, Tender - Across upper abdomen, including right upper quadrant, Wheatley's sign. Negative for: Guarding, Rebound tenderness Back: Nontender, Normal Inspection. Negative for: CVA tenderness Extremities: Nontender, No edema. Negative for: Calf Tenderness Skin: Normal color, No rash, No Trauma Neurological: Alert, Oriented x3, Cranial nerves II-XII grossly intact, Normal Strength, Normal Sensation, Normal Gait Psychological: Normal affect, Normal Mood Diagnostic/Tx/Re-eval Impressions Gallbladder Ultrasound 12/16/20 12:02 IMPRESSION: Multiple gallstones and sludge seen within the gallbladder lumen. Mildly thickened gallbladder wall with an minimal amount of pericholecystic fluid. Electronically Signed: Jori Cochran MD at 14:03 EDT , Service support , 12/16/20 12:02 Gallbladder [US] Stat Laboratory Results 12/16/20 12/16/20 12/16/20 12:52 12:52 12:52 WBC 16.9 H RBC 5.01 Hgb 14.4 Hct 44.2 MCV 88.2 MCH 28.7 MCHC 32.6 RDW Std Deviation 45.7 H RDW Coeff of Tyshawn 14.3 Plt Count 407 MPV 10.5 Immature Gran % (Auto) 0.400 Neut % (Auto) 85.1 H Lymph % (Auto) 8.5 L [place] % (Auto) 5.5 Eos % (Auto) 0.3 Baso % (Auto) 0.2 Absolute Neuts (auto) 14.4 H Absolute Lymphs (auto) 1.43 Nucleated RBC % 0 Sodium 138 Potassium 3.5 Chloride 104 Carbon Dioxide 28.0 Anion Gap 6 BUN 9 Creatinine 0.76 Estim Creat Clear Calc 98.56 Est GFR (MDRD) Af Amer 112 Est GFR (MDRD) Non-Af 92 BUN/Creatinine Ratio 11.8 Glucose 102 Calcium 9.1 Total Bilirubin 1.20 H AST 72 H ALT 78 H Alkaline Phosphatase 159 H Total Protein 8.1 Albumin 3.4 Globulin 4.7 H Albumin/Globulin Ratio 0.7 L Lipase 98 Serum , Qual NEGATIVE Urine Color Urine Clarity Urine pH Ur Specific [place] Urine Protein Urine Glucose (UA) Urine Ketones Urine Occult Blood Urine Nitrite Urine Bilirubin Urine Urobilinogen Ur Leukocyte Esterase Urine RBC Urine WBC Ur Squamous Epith Cells Urine Bacteria Urine Mucus 12/16/20 12:52 WBC RBC Hgb Hct MCV MCH MCHC RDW Std Deviation RDW Coeff of Tyshawn Plt Count MPV Immature Gran % (Auto) Neut % (Auto) Lymph % (Auto) [place] % (Auto) Eos % (Auto) Baso % (Auto) Absolute Neuts (auto) Absolute Lymphs (auto) Nucleated RBC % Sodium Potassium Chloride Carbon Dioxide Anion Gap BUN Creatinine Estim Creat Clear Calc Est GFR (MDRD) Af Amer Est GFR (MDRD) Non-Af BUN/Creatinine Ratio Glucose Calcium Total Bilirubin AST ALT Alkaline Phosphatase Total Protein Albumin Globulin Albumin/Globulin Ratio Lipase Serum , Qual Urine Color Yellow Urine Clarity Sl. Cloudy Urine pH 8.0 Ur Specific [place] 1.015 Urine Protein Negative Urine Glucose (UA) Normal Urine Ketones Negative Urine Occult Blood 10 H Urine Nitrite Negative Urine Bilirubin Negative Urine Urobilinogen Normal Ur Leukocyte Esterase 100 H Urine RBC 0-5 SEEN Urine WBC 0-5 SEEN Ur Squamous Epith Cells 10-25 SEEN Urine Bacteria 1+ Urine Mucus 0 SEEN - Medical Decision Making Patient symptoms are consistent with biliary colic which was confirmed after ultrasound showing cholelithiasis and pericholecystic fluid and a positive sonographic Wheatley's. She is a leukocytosis, persistent pain after medication, she is clinically hemodynamically stable but this is consistent with early acute cholecystitis and the plan is to admit her to surgery for definitive treatment. Morphine ordered in addition to antibiotics. ED Disposition - Plan for ED Patient: Disposition: Acute Care Hospital [facility] Diagnosis: Acute cholecystitis due to biliary calculus
[2020-12-16] MEDS: 0.9% Normal Saline 1,000 ML 1000 ML IV (12:42)
[2020-12-16] MEDS: Ketorolac 30 MG/ML Syringe IV (12:42)
[2020-12-16] MEDS: Ondansetron 4 MG/2 ML Vial IV (12:42)
[2020-12-16 12:57] LABS: Mucous, Urine 0 SEEN /hpf (<or=2+)
[2020-12-16 13:00] LABS: Color, Urine Yellow (Yellow); Glucose, Dipstick Normal (Normal); Ketone-Dipstick Negative (Negative); Leukocyte Esterase-Dipstick 100 /ul (Negative); Nitrite-Dipstick Negative (Negative); Occult Blood-Urine 10 /ul (Negative); Protein-Dipstick Negative (Negative); Specific Gravity, Urine 1.015 (1.002-1.030); Urine Bilirubin Dipstick Negative (Negative); Urine Clarity Sl. Cloudy (Clear); Urine Urobilinogen Normal (Normal)
[2020-12-16 13:05] LABS: Absolute Lymphocyte Count 1.43 X10^3/uL (0.83-4.51); Absolute Neutrophil Count 14.4 X10^3/uL (2.0-7.7); Basophil# 0.04 X10^3/uL; Basophil% 0.2 % (0-1); Eosinophil# 0.05 X10^3/uL; Eosinophils% 0.3 % (0-5); Hematocrit 44.2 % (37-47); Hemoglobin 14.4 g/dL (12.0-15.0); Lymphocyte # 1.43 X10^3/ul (4.0); Lymphocyte % 8.5 % (19-41); Mean Corp Hgb Conc 32.6 g/dL (32-36); Mean Corpuscular Hgb 28.7 pg (27.0-32.0); Mean Corpuscular Volume 88.2 fL (81-99); Mean Platelet Vol. 10.5 fl (6.2-12.0); Monocyte# 0.92 X10^3/uL; Monocyte% 5.5 % (0-10); NRBC Flagged by Analyzer 0 % (0-5); Neutrophil # 14.35 X10^3/uL (2.7-7.7); Neutrophil % 85.1 % (47-70); Platelet Count 407 K/mm3 (150-450); RBC Distribution Width CV 14.3 % (11.6-14.6); RBC Distribution Width SD 45.7 fl (35.1-43.9); Red Blood Count 5.01 M/mm3 (4.2-5.4); White Blood Count 16.9 K/mm3 (4.4-11.0)
[2020-12-16 13:18] LABS: ALB/GLOB Ratio 0.7 RATIO (0.9-2.4); AST(SGOT) 72 U/L (15-37); Alanine Aminotransfer ALT/SGPT 78 U/L (13-56); Albumin, Serum 3.4 g/dL (3.2-5.0); Alkaline Phosphatase 159 U/L (45-117); Anion Gap 6 (5-15); BUN 9 mg/dL (7-18); BUN/Creat Ratio 11.8 RATIO (10-20); Calcium,Total 9.1 mg/dL (8.5-10.1); Chloride 104 mmol/L (98-107); Creatinine, Serum 0.76 mg/dL (0.55-1.02); EST Glomerular Filtration Rate 92 mL/min (>60); Est Glom Filt Rate - Afr Amer 112 mL/min (>60); Estimated Creatinine Clearance 98.56 ml/min; Globulin 4.7 g/dL (2.2-4.2); Glucose 102 mg/dL (74-106); Lipase 98 U/L (73-393); Potassium 3.5 mmol/L (3.5-5.1); Protein, Total 8.1 g/dL (6.4-8.2); Sodium Level 138 mmol/L (136-145)
[2020-12-16 13:29] LABS: Bacteria 1+ /hpf (None Seen); Internal QC Validated? YES +Cl - CLEAR BKGD; Red Blood Cells-Urine 0-5 SEEN /hpf (0-5); Squamous Epithelial Cells - UA 10-25 SEEN /hpf (5-10); White Blood Cells 0-5 SEEN /hpf (0-5)
[2020-12-16 13:34] LABS: Pregnancy, Serum, hCG Quali. NEGATIVE Negative
--- NOTE | 2020-12-16 14:43 | NURSING ---
DR BRUNNER IN ROOM
--- NOTE | 2020-12-16 14:48 | NURSING ---
MED SURG CALABRETA ACUTE CALCULOUS CHOLECYSTITIS
--- NOTE | 2020-12-16 15:08 | EKG12_ITS ---
Test Reason : PRE-OP Blood Pressure : / mmHG Vent. Rate : 062 BPM Atrial Rate : 062 BPM P-R Int : 186 ms QRS Dur : 088 ms QT Int : 426 ms P-R-T Axes : 051 066 061 degrees QTc Int : 432 ms Normal sinus rhythm with sinus arrhythmia Normal ECG Confirmed by GABRIEL NEAL, DAVON ([id number]), loan expeditor MARY ARIAS ([id number]) on 12/19/2020 11:25:34 AM Referred By: DR BRUNNER Confirmed By:DAVON RIOS MD
--- NOTE | 2020-12-16 15:09 | HP.PCM_ITS ---
Problem List (1) Acute cholecystitis due to biliary calculus Status: Acute History of Present Illness Date of Admission: 12/16/20 The patient is a 35 year old F who reports having right upper quadrant pain and nausea since Wednesday. Over the last 3 days she has not been able to eat much and she feels like she is having chills and upper abdominal pain. She has not had any vomiting. She reports no history of gallbladder issues in the past. Past Medical History Past Medical History (Chronic Problems): Chronic Problems (Last Reviewed 11/08/19 @ 15:22 by Mary Lou Aguilera) Anxiety (Chronic) 150 mg zoloft, recommend counseling PCOS (polycystic ovarian syndrome) (Chronic) femara Medical History: Medical History (Last Reviewed 11/08/19 @ 15:22 by Mary Lou Aguilera) Anxiety F41.9 Obesity E66.9 PCOS (polycystic ovarian syndrome) E28.2 Allergies prednisone Allergy (Mild, Verified 12/16/20 11:02) Other rash Home Medications: Ambulatory Orders Medication Instructions Recorded levocetirizine 5 mg tablet 5 mg PO DAILY 01/23/19 Multivitamin 1 each PO DAILY 12/16/20 Norgestimate-Ethinyl Estradiol 1 tablet PO DAILY 12/16/20 [Previfem] Sertraline HCl [Zoloft] 150 mg PO DAILY 12/16/20 Surgical History: Surgical History (Last Reviewed 11/08/19 @ 15:22 by Mary Lou Aguilera) delivery delivered O82 History of dilation and curettage Z98.890 miscarriage 2010; pt states that a polyp was removed as well as a cyst. Surgical History: - - x2 Lives: Spouse/ Significant Other Smoking Status: Never smoker - *Family History Maternal Family History: Family History (Last Reviewed 11/08/19 @ 15:22 by Mary Lou Aguilera) Father Hypertension Diabetes Mother Diabetes Review of Systems Constitutional: Reports: Anorexia. Denies: Chills, Fever, Weight Change HEENT: Denies: Head Aches, Sinus Congestion, Sinus Drainage Cardiovascular: Denies: Chest Pain, Palpitations Respiratory: Denies: Cough, Shortness of breath at rest, Sputum production Gastrointestinal: Reports: Abdominal Pain, Nausea. Denies: Diarrhea, Hematemesis, Hematochezia, Vomiting Genitourinary: Denies: Dysuria Musculoskeletal: Denies: Joint Pain, Joint Tenderness Skin: Denies: Rash, Wounds Neurological: Denies: Numbness, Tingling, Focal weakness Psychiatric: Denies: Anxiety, Depression, Homicidal Ideations, Suicidal Ideations Hematologic/ Lymphatic: Denies: Easy Bruising, Easy Bleeding VTE Information - Inpt Only VTE Present on Admission: No VTE Mechan Device Prophylaxis: SCD's Patient Problems: Active and Suspected Problems (Last Reviewed 11/08/19 @ 15:22 by Mary Lou Aguilera) Acute cholecystitis due to biliary calculus (Acute) - Physical Exam Vitals/I&O's: Vital Signs Temp Pulse Resp BP Pulse Ox 96.2 F L 86 16 135/88 H 98 12/16/20 11:03 12/16/20 11:03 12/16/20 11:03 12/16/20 11:03 12/16/20 11:03 Oxygen Delivery Method Room Air Weight: 275 lb Body Mass Index (BMI) 44.4 General: Alert, Oriented x3 Neck: No JVD Lungs: Clear to auscultation, Normal air movement Cardiovascular: Regular rate, Regular Rhythm Abdomen: Soft, Non-Distended, Tender - Tender in the right upper quadrant and epigastric region with no guarding Extremities: No clubbing Skin: No rashes Musculoskeletal: No Muscle Wasting Lymphatic: No Cervical, Supraclavicular, or Inguinal Adenopathy Neurological: Cranial nerves II-XII grossly intact Psych/Mental Status: Normal Affect Laboratory Results 12/16/20 12:52: WBC 16.9 H, RBC 5.01, Hgb 14.4, Hct 44.2, MCV 88.2, MCH 28.7, MCHC 32.6, RDW Std Deviation 45.7 H, RDW Coeff of Tyshawn 14.3, Plt Count 407, MPV 1 0.5, Immature Gran % (Auto) 0.400, Neut % (Auto) 85.1 H, Lymph % (Auto) 8.5 L, [place] % (Auto) 5.5, Eos % (Auto) 0.3, Baso % (Auto) 0.2, Absolute Neuts (auto) 14.4 H, Absolute Lymphs (auto) 1.43, Nucleated RBC % 0 12/16/20 12:52: Sodium 138, Potassium 3.5, Chloride 104, Carbon Dioxide 28.0, Anion Gap 6, BUN 9, Creatinine 0.76, Estim Creat Clear Calc 98.56, Est GFR (MDRD) Af Amer 112, Est GFR (MDRD) Non-Af 92, BUN/Creatinine Ratio 11.8, Glucose 102, Calcium 9.1, Total Bilirubin 1.20 H, AST 72 H, ALT 78 H, Alkaline Phosphatase 159 H, Total Protein 8.1, Albumin 3.4, Globulin 4.7 H, Albumin/Globulin Ratio 0.7 L, Lipase 98 12/16/20 12:52: Serum , Qual NEGATIVE 12/16/20 12:52: Urine Color Yellow, Urine Clarity Sl. Cloudy, Urine pH 8.0, Ur Specific [place] 1.015, Urine Protein Negative, Urine Glucose (UA) Normal, Urine Ketones Negative, Urine Occult Blood 10 H, Urine Nitrite Negative, Urine Bilirubin Negative, Urine Urobilinogen Normal, Ur Leukocyte Esterase 100 H, Urine RBC 0-5 SEEN, Urine WBC 0-5 SEEN, Ur Squamous Epith Cells 10-25 SEEN, Urine Bacteria 1+, Urine Mucus 0 SEEN Clinical Impression(s) from Imaging Studies Gallbladder Ultrasound 12/16/20 12:02 IMPRESSION: Multiple gallstones and sludge seen within the gallbladder lumen. Mildly thickened gallbladder wall with an minimal amount of pericholecystic fluid. Electronically Signed: Jori Cochran MD at 14:03 EDT , Service support , Current Medications Acetaminophen (Acetaminophen 325 Mg Tablet) 650 mg PO Q4H PRN PRN PRN Reason: P/F Sodium Chloride () 1,000 mls @ 125 mls/hr IV .Q8H MARYANN Piperacillin Sod/Tazobactam (Sod 3.375 gm/ Sodium Chloride) 50 mls @ 12.5 mls/hr IV Q8 MARYANN Morphine Sulfate (Morphine 2 Mg/Ml Syringe) 2 - 4 mg IV Q2H PRN PRN PRN Reason: Pain Score 4-10 Ondansetron HCl (Ondansetron 4 Mg/2 Ml Vial) 4 mg IV Q6H PRN PRN PRN Reason: NAUSEA Assessment/Plan All Active Problems (Last Reviewed 11/08/19 @ 15:22 by Mary Lou Aguilera) Active labor at term (Acute) Acute cholecystitis due to biliary calculus (Acute) Gestational diabetes (Acute) Anemia affecting (Acute) H/O section (Acute) Obesity affecting (Acute) Supervision of high risk , antepartum (Acute) (Acute) Abnormal glucose affecting (Resolved) Low lying placenta nos or without hemorrhage, second trimester (Resolved) 35-year-old female with acute cholecystitis 1. The patient has had right upper quadrant pain for 3 days with nausea. The patient has an elevated white count and her ultrasound shows a thickened gallbladder wall with multiple gallstones and pericholecystic fluid. The patient also has mildly elevated LFTs. 2. I discussed laparoscopic cholecystectomy with her. I discussed the procedure in detail with the patient. I discussed the risks, benefits, and alternatives of the procedure. I discussed the risks including but not limited to bleeding, infection, injury to surrounding organs such as the liver, bile duct, bowels. I did discuss the possibility of having to convert to an open procedure as well as the possibility that if any injuries occurred this may necessitate further surgery at a tertiary care center. I will also perform a cholangiogram during the procedure and I informed her of the possibility of ERCP if needed. 3. I will admit the patient and start her on antibiotics and perform surgery tomorrow morning. Patient will be n.p.o. after midnight. Tavo Torres MD Pager: [facility] [address] [place] [address], [address] [place] [address] Office:
[2020-12-16] MEDS: Morphine 4 MG/ML Syringe IV (16:00)
--- NOTE | 2020-12-16 16:05 | ED.RN ---
delay in treatment due to concerned about not being able to spend the night with . he states she had severe anxiety and she will sign out AMA if he is not able to stay with her. patient agrees with statement. reason for restricted visitation explained. this rn spoke with [facility] charge nurse. permitted to stay the night with patient. aware that he is to stay in the room and keep his mask on. left to go home to obtain personal care items for patient and himself.
[2020-12-16 16:18] VITALS: BMI 45.0
[2020-12-16 16:27] VITALS: BP 138/78; PULSE 74; RESP 18; TEMP 36.9; O2SAT 98
[2020-12-16] MEDS: 0.9% Normal Saline 1,000 ML 125 ML IV ×2 (16:49→23:18)
[2020-12-16 21:45] VITALS: BP 120/64; PULSE 63; RESP 16; TEMP 36.5; O2SAT 99
[2020-12-16] MEDS: Morphine 2 MG/ML Syringe IV (23:13)
[2020-12-17] VITALS (18 sets, daily range): BP systolic 91–141; BP diastolic 61–87; PULSE 59–98; RESP 15–18; TEMP 36.1–37; O2SAT 91–98; BMI 45.0
--- NOTE | 2020-12-17 | GALL_PTH ---
PATIENT: OSMANY MORALES LOC: [facility] U#:[id number] AGE/SX: 35/F ROOM: [facility]314 RE12/16/[address]: Dr. Tavo Torres MD : 1985 BED: 1 DIS: 12/17/2020 SPEC #: [id number] RECD: 12/17/20 13:15 STATUS: SMITA YEUNGBin #: [id number] GUANAKO: 12/17/20 00:[address]: Tavo Torres DEPT: SURGICAL PATHOLOGY RECD BY: Lex Obrien ENTERED: 12/18/20 07:31 SP TYPE: SURYA BALTAZAR DR: JENNIE Carlos Tissues: Gallbladder, NOS Procedures: Surgery Specimen Level III HEADER OPERATION: Laparoscopic cholecystectomy with IOC PRE-OP DIAGNOSIS: Acute cholecystitis due to biliary calculus TISSUE SUBMITTED: Gallbladder MICROSCOPIC DIAGNOSIS Gallbladder, cholecystectomy: Acute and chronic cholecystitis, cholelithiasis and cholesterolosis. SJ:douglas 12/19/2020 MICROSCOPIC DESCRIPTION Slides are reviewed. GROSS DESCRIPTION Received is one container labeled with the patient's name and designated gallbladder. The specimen consists of a gallbladder measuring 7.5 cm in length and up to 3 cm in diameter. The external surface is pink-joyner, smooth and glistening for the most part. Focally it is granular, hemorrhagic and contains cautery artifact. The gallbladder contains green-yellow mucoid bile and multiple yellowish, mulberry stones measuring in aggregate 3 x 2 x 1 cm and 0.1 to 0.3 cm in greatest dimension. The mucosa is bile-stained and without any mass lesions. The gallbladder wall measures up to 0.5 cm in thickness. Sections of the gallbladder reveal edematous cut surfaces. Director Marketing sections from the gallbladder and the cystic duct are submitted in one cassette. / CARMINE:douglas 12/18/20 TC:2 CPT: 17292
[2020-12-17] MEDS: Ondansetron 4 MG/2 ML Vial IV (02:05)
[2020-12-17] MEDS: Morphine 2 MG/ML Syringe IV ×2 (02:05→06:02)
[2020-12-17] MEDS: 0.9% Normal Saline 1,000 ML 125 ML IV ×2 (06:03→14:31)
[2020-12-17 06:11] LABS: Absolute Lymphocyte Count 2.41 X10^3/uL (0.83-4.51); Absolute Neutrophil Count 5.2 X10^3/uL (2.0-7.7); Basophil# 0.04 X10^3/uL; Basophil% 0.5 % (0-1); Eosinophil# 0.15 X10^3/uL; Eosinophils% 1.8 % (0-5); Hematocrit 36.7 % (37-47); Hemoglobin 11.7 g/dL (12.0-15.0); Lymphocyte # 2.41 X10^3/ul (4.0); Lymphocyte % 28.5 % (19-41); Mean Corp Hgb Conc 31.9 g/dL (32-36); Mean Corpuscular Hgb 28.7 pg (27.0-32.0); Mean Platelet Vol. 10.5 fl (6.2-12.0); Monocyte# 0.59 X10^3/uL; NRBC Flagged by Analyzer 0 % (0-5); Neutrophil # 5.24 X10^3/uL (2.7-7.7); Platelet Count 311 K/mm3 (150-450); RBC Distribution Width CV 14.5 % (11.6-14.6); RBC Distribution Width SD 47.6 fl (35.1-43.9); Red Blood Count 4.08 M/mm3 (4.2-5.4); White Blood Count 8.5 K/mm3 (4.4-11.0)
[2020-12-17 06:42] LABS: ALB/GLOB Ratio 0.7 RATIO (0.9-2.4); AST(SGOT) 46 U/L (15-37); Alanine Aminotransfer ALT/SGPT 81 U/L (13-56); Albumin, Serum 2.6 g/dL (3.2-5.0); Alkaline Phosphatase 132 U/L (45-117); Anion Gap 3 (5-15); BUN 8 mg/dL (7-18); BUN/Creat Ratio 11.4 RATIO (10-20); Calcium,Total 7.7 mg/dL (8.5-10.1); Chloride 108 mmol/L (98-107); EST Glomerular Filtration Rate 102 mL/min (>60); Est Glom Filt Rate - Afr Amer 123 mL/min (>60); Estimated Creatinine Clearance 107.01 ml/min; Globulin 3.7 g/dL (2.2-4.2); Glucose 101 mg/dL (74-106); Potassium 3.3 mmol/L (3.5-5.1); Protein, Total 6.3 g/dL (6.4-8.2); Sodium Level 138 mmol/L (136-145)
[2020-12-17] MEDS: Potassium Chloride 10mEq/100mL 10 MEQ/100 ML IV.SOLN. 100 MEQ IV BOLUS ×2 (07:51→08:58)
[2020-12-17] MEDS: 0.9% Saline Lock 10 ML Syringe IV (07:51)
--- NOTE | 2020-12-17 09:53 | CASEMGMT ---
Social Work Note SW reviewed chart. Pt is listed as self-pay. SW attempted to meet with pt. Pt currently off floor. SW left financial resources in pt's room including Medicaid Application, HCAP application, [employer], [place] [id number], [facility] [facility], and RX assistance programs. Per chart, PFS has spoken with pt regarding self-pay status as well. Per PFS SP (CHOOSES TO NOT CARRY INS DUE TO COST). 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 FAMILY OF 4. REPORTS OVER $26,500.00. REVIEWED PK[employer] PRICING FOR [employer]. PFS reviewed forms that they will need for self-pay as well with pt. SW to remain available should financial concerns arise. Chika Grider REJOGGER, QUALITY LAB TECHNICIAN
--- NOTE | 2020-12-17 10:30 | RAD_ITS ---
STUDY: INTRAOPERATIVE) GRAMS REASON FOR EXAM: Female, 35 years old. Cholecystectomy RADIATION DOSAGE (If Supplied By Facility): CTDIvol = ( 101.59 ) mGy, DLP = ( ) mGycm. Individualized dose optimization techniques were used for this CT.? FLUOROSCOPY TIME (if supplied): ( 76.6 ) seconds TECHNIQUE: 2 spot films obtained COMPARISON: None. FINDINGS: After cholecystectomy, contrast injected by in a retrograde manner into the cystic duct. The biliary tree fills normally. No retained stone or dilatation noted. Free flow of contrast noted in the duodenum. No extravasation of contrast noted. RAD/Cholangiogram/ O R,Initial IMPRESSION: Normal intraoperative cholangiogram Electronically Signed: Parker Scott MD at 12:47 EDT , Service support ,
[2020-12-17] MEDS: Bupiv/Epi 0.25% 30 ML Vial (11:00)
--- NOTE | 2020-12-17 11:46 | OP.PCM_ITS ---
Problem List (1) Acute cholecystitis due to biliary calculus Status: Acute Report of Operation Date of Procedure: 12/17/20 Pre-Operative Diagnosis: Acute cholecystitis Post-Operative Diagnosis: Acute cholecystitis Surgery/Procedure Performed:: Laparoscopic cholecystectomy with cholangiogram Specimen's removed: Gallbladder and contents Estimated Blood Loss (mL): 50 Description of Procedure: Patient was brought back to the operating room and general anesthesia was induced. The abdomen was prepped and draped in usual sterile fashion. Midline incision was made superior to the umbilicus deep to the fascia which was elevated and incised. A finger sweep was performed and a port was placed in the abdomen. The abdomen was insufflated 15 mmHg. The abdomen was inspected. The gallbladder appeared inflamed. The patient was placed in reverse Trendelenburg and a 5 mm port was placed under direct visualization into the subxiphoid space as well as the right upper quadrant x2. The gallbladder was aspirated with an aspiration needle. Next the gallbladder was grasped at the fundus and elevated to the right upper quadrant. The peritoneum was stripped from the gallbladder until the infundibulum was reached. The cystic duct was dissected free and the area around it was very inflamed. The cystic duct was clipped proximally and th en a small sarah was made in the skin in the right upper quadrant and a Ranfac catheter was placed into the abdomen. Scissors were used to make a sarah in the cystic duct and the Ranfac was placed into the cystic duct and a clip was placed. Cholangiograms were performed. There was a filling defect in the proximal bile duct but I believe this to be a bubble. It was very large and change shape multiple times during the cholangiogram. There was free flow of contrast into the duodenum with no small filling defects. All the filling defects that were in her gallbladder were very small so I do not believe that she has a common bile duct stone. The clip was removed and the Ranfac catheter was removed. 2 clips were placed on the distal cystic duct and then it was divided fully. The cystic artery was identified and triple clipped and divided. Electrocautery was then used to take the gallbladder off the gallbladder fossa. It was very inflamed and adherent and there was a lot of oozing. The abdomen was irrigated and suctioned dry. The argon beam pallet stone positioner was used to obtain hemostasis in the gallbladder fossa was irrigated with Surgicel powder. There appeared to be good hemostasis and the abdomen was then desufflated. The ports were then removed under direct visualization as was the bag containing the gallbladder. The midline fascia was closed with [id number] Vicryl s uture. The subcutaneous tissue was irrigated and suctioned dry and the skin incisions were injected with local anesthetic and then closed with interrupted 4 Monocryl sutures as well as Steri-Strips and bandages. Patient was then awoken and taken to PACU in stable condition. - Admit VTE Documentation VTE Mechan Device Prophylaxis: SCD's
--- NOTE | 2020-12-17 12:00 | DCINST_ITS ---
Discharge Diet: Light diet - advance as tolerated Discharge Activity: Return to Normal Activity, May Not Drive - for 2-3 days or while taking narcotic pain medicataions., - - Do not drive, work heavy equipment or sign legal documents for 24 hours. May shower in (days): 1 - with the bandage in place. Lifting Restrictions: 20 lbs for 2-3 weeks Additional Activity Instructions:: Pain medication may cause nausea. You should typically eat light foods as you take your pain medications. Pain medication may also cause constipation. If this is a problem for you, please discuss with your doctor. Call your doctor if your incision/area has: Continuous Slow Oozing, Sudden Increased Bleeding, Increased Pain/ Swelling, Increased Redness, Foul Smelling Discharge, Fever of 101 or Higher Call your doctor if you observe: Fever of 101 or Higher Suture Line Care: Avoid Pulling/Pushing, Avoid Pinching/Bending Additional Dressing/Incision Instructions:: Leave operative bandaids on for 2 days. When you remove dressing, leave Steri-Strips on until your follow-up appointment, or until the Steri-Strips fall off on their own. Allergies/Adverse Reactions: Allergies prednisone Allergy (Mild, Verified 12/16/20 11:02) Other rash Medications to take at Discharge levocetirizine 5 mg tablet 5 mg PO DAILY 01/23/19 Multivitamin 1 each PO DAILY 12/16/20 Norgestimate-Ethinyl Estradiol [Previfem] 1 tablet PO DAILY 12/16/20 Sertraline HCl [Zoloft] 150 mg PO DAILY 12/16/20 Acetaminophen [Tylenol Tablet] 650 mg PO Q4H PRN PRN tablet 12/17/20 Oxycodone [Oxyir] 5 - 10 mg PO Q4H PRN PRN 5 Days #40 tablet 12/17/20 The following prescriptions were given: Oxycodone [Oxyir] 5 - 10 mg PO Q4H PRN PRN 5 Days #40 tablet PRN Reason: Pain Score 6-10 Transmission Status: Sent to [facility] Primary Care Physician: Brenda Serrano PA [Primary Care Provider] - Test Results: Test results from this visit will be discussed in further detail at your follow- up appointment, if applicable. Please Follow Up With: Tavo Torres MD When: Please call to schedule 2 week follow up appointment. [phone]
--- NOTE | 2020-12-17 15:51 | CASEMGMT ---
Addendum entered by Chika Grider 12/17/20 16:02: SW back in to speak with pt. SW asked pt who is taking care of her children while she and her are at [facility] and pt states her grandma is taking care of the children at this time. Original Note: Social Work Note SW updated by Charge Nurse that pt's had requested to stay all night with pt and was going to have pt leave AMA if he was not able to stay. SW updated with concerns regarding pt's . SW in to speak with pt. Pt sleeping when this worker entered the room. Pt's Karan present in room. SW asked pt if it was ok for this worker to speak to her in front of her guest and if pt felt comfortable speaking in front of her guest and pt states she is fine with Karan staying in pt's room during this worker's conversation and she feels comfortable speaking to this worker in front of her guest. Pt sleepy during conversation, doesn't really open her eyes during conversation. Pt states her is a Parking Manager. Pt states she gets around ok and she is a stay at home mom. Pt states she has applied for Medicaid before but makes too much as her owns four businesses. Pt states she is hoping to be discharged home today. Substance Abuse Hx: Pt denied Mental Health Hx: Pt states history of anxiety, states she is on medications. SW asked pt about counseling. Pt states again her is a Parking Manager so she talks to him about her anxiety. Safety: Pt states no concerns with going home at discharge. Pt denied any trauma or abuse in the household. SW again asked pt if she had any concerns with going home and pt denied. Chika Grider [employer], [employer]ICAL AGENT
[2020-12-17] MEDS: oxyCODONE 5 MG Tablet PO ×2 (17:47→20:00)
== END 2020-12-17 20:36 | disposition home or self-care (01) ==
LOC: ED 15:08 → MS3 12-17 06:38
PROVIDERS: Admitting Provider Surgery; Emergency Provider Emergency Medicine; PCP Physician Assistant; Visit Provider Surgery
PROC: (CPT 47610; principal; 2020-12-17 12:15)
DX: K80.12 Calculus of gallbladder with acute and chronic cholecystitis without obstruction (principal); F41.9 Anxiety disorder, unspecified; E28.2 Polycystic ovarian syndrome; E66.9 Obesity, unspecified; Z79.899 Other long term (current) drug therapy; Z68.41 Body mass index [BMI] 40.0-44.9, adult
CPT/HCPCS: 47563; 74300; 76000; 76705; 80053; 81001; 83690; 84703; 85025; 87426; 88304; 93005; 96361; 96365; 96366; 96375; 96376; 99218; 99251; 99282; J7030; J7040; J7120; A4216; G0378; G0463; J1610; J2405